=== PATIENT | female | born 1945 | race Caucasian/White ===

== ENCOUNTER 2021-09-28 10:31 | Emergency (ER) | payer OTHER ==
[2021-09-28 11:39] LABS: BASOPHIL 0.3 % (0-2); EOSINOPHIL 0.2 % (0-7); HCT 35.2 % (37.0-47.0); HGB 11.7 g/dl (12.5-16.0); LYMPHOCYTE 17.6 % (15-48); MCH 29.3 pg (25.0-31.0); MCHC 33.2 g/dL (32.0-36.0); MCV 88.2 fL (78.0-100.0); MONOCYTE 6.5 % (0-12); MPV 9.8 fL (6.0-9.5); NEUTROPHIL 75.1 % (41-80); NRBC 0; PLT 220 K/uL (150-400); RBC 3.99 M/uL (4.20-5.40); RDW 14.3 % (11.5-14.0); WBC 9.5 K/uL (4.0-10.5)
[2021-09-28 11:57] LABS: ALBUMIN 3.8 g/dL (3.4-5.0); BILIRUBIN - TOTAL 1.1 mg/dL (0.2-1.0); BUN/CREAT RATIO (CALC) 29.9 RATIO; C-REACTIVE PROTEIN 11.9 mg/dL (<=0.90); CREATININE 0.87 mg/dL (0.51-0.95); GLOBULIN (CALCULATION) 4.1 g/dL; POTASSIUM 3.6 mmol/L (3.5-5.1); TOTAL PROTEIN 7.9 g/dL (6.4-8.2)
[2021-09-28] MEDS ORDERED: BACTRIM DS TAB1 EACH PO (13:23)
[2021-09-28] MEDS ORDERED: DIFLUCAN150 MG PO (13:23)
[2021-09-28] MEDS ORDERED: VIBRAMYCIN100 MG PO (13:23)
== END 2021-09-28 13:36 | disposition home or self-care (01) ==
LOC: FER 10:31
PROVIDERS: Emergency Medicine
DX: L03.116 Cellulitis of left lower limb (principal); I10 Essential (primary) hypertension; E11.9 Type 2 diabetes mellitus without complications; I25.10 Atherosclerotic heart disease of native coronary artery without angina pectoris; Z88.0 Allergy status to penicillin; Z88.8 Allergy status to other drugs, medicaments and biological substances
CPT/HCPCS: 36415; 80053; 84145; 85025; 86140; 93971